=== PATIENT | female | born 1995 | race Caucasian/White ===

== ENCOUNTER 2018-08-21 02:04 | Emergency (ER) | payer SELFPAY ==
[~2018-08-21] VITALS: Ht 162.6 cm; Wt 86.2 kg
[~2018-08-21 02:04] MED LIST: AGM875T PO; AMOX500C2 PO; CEPH-507 PO; CYCL10TA9 PO; HYDR-3454 PO; HYDR-4226 PO; METH4TAB PO; NAPR-915 PO; ONDA8TAB13 PO
[2018-08-21 02:19] VITALS: BP 111/83
--- OUTSIDE RECORDS SUMMARY | 2018-08-21 02:23 | XMS REPORT | Clinical Summary ---
Demographics Preferred Language Unknown Marital Status Unknown Tenriism Affiliation Unknown Race Unknown Ethnic Group Unknown Author Author [facility] Organization [facility] Address Unknown Phone Unavailable Care Team Providers Care Runner Worker Name Role Phone PCP Unavailable Source Comments Some departments are not documenting in the electronic medical record. If you d o not see the information that you expected, contact Release of Information in [facility] Information Management department at [phone] for further assistan ce in locating additional records.[facility] Allergies No Known Allergies Medications Not on file Active Problems Not on file Social History Date Tobacco Use Types Packs/Day Years Used Never Assessed Sex Assigned at Date Recorded Not on file Industry Job Start Date Occupation Not on file Not on file Not on file Travel End Travel History Travel Start No recent travel history available. Last Filed Vital Signs Reading Time Taken Comments Vital Sign 127/65 04/27/2015 9:11 PM [employer] Blood Pressure 97 04/27/2015 9:11 PM [employer] Pulse 36.8 C (98.2 F) 04/27/2015 9:11 PM [employer] Temperature - - Respiratory Rate 100% 04/27/2015 9:11 PM [employer] Oxygen Saturation - - Inhaled Oxygen Concentration 77.1 kg (170 lb) 04/27/2015 9:11 PM [employer] Weight 162.6 cm (5' 4") 04/27/2015 9:11 PM [employer] Height 29.18 04/27/2015 9:11 PM [employer] Body Mass Index Plan of Treatment Health Maintenance Due Date Last Done Comments PHYSICAL (COMPREHENSIVE) 2000 EXAM HIV SCREENING 2008 HPV VACCINES (1 - Female 2008 3-dose series) DTAP/TDAP VACCINES (1 - 11/26/2011 Tdap) CERVICAL CANCER SCREENING 2014 INFLUENZA VACCINE 11/27/2018 Results Not on filefrom Last 3 Months
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
--- OUTSIDE RECORDS SUMMARY | 2018-08-21 02:24 | XMS REPORT ---
Author Author NADIR BARBER Organization [employer] Address Unknown Phone Unavailable Care Team Providers Care Fire Tower Keeper Name Role Phone NADIR BARBER CP Unavailable Allergies, Adverse Reactions, Alerts Substance Reaction Event Type N.K.D.A. Info Not Available Non Drug Allergy Problems Problem Type Condition Code Onset Dates Condition Status Problem Acute bronchitis 466.0 Active Assessment Dental examination Z01.20 Active Problem Acute sinusitis, unspecified 461.9 Active [...] End Date Status Dosage Penicillin G Potassium [facility] [id number] not defined Procedures Procedure Coding System Code Date INTRAORL-PERIAPICAL 1 FILM 18233 CPT-4 D0220 Nov 17, 2015 LTD ORAL EVALUATION - PROBLEM FOCUS CPT-4 D0140 Nov 17, 2015 Vital Signs Date/Time: Nov 17, 2015 Blood Pressure Diastolic 49 mmHg Blood Pressure Systolic 105 mmHg Height 65 in Results No Known Results Summary Purpose [employer] Submission
--- NOTE | 2018-08-21 02:26 | ED Upper Extremity ---
General Chief Complaint: Laceration Stated Complaint: RT HAND PINKY FINGER LAC Nursing Triage Note: Patient states she tripped and fell into a box of glass. Patient has a small laceration on her right pinky finger that is about a 0.5 inch long. No bleeding noted but she does state that it bled prior to arrival. Patient denies having any pain anywhere else as a result of her fall. Nursing Sepsis Screen: No Definite Risk History of Present Illness Date Seen by Provider: Aug 21, 2018 Time Seen by Provider: 02:22 Initial Comments Patient presents emergency department for evaluation of dorsal right pinky finger laceration at the middle phalanx sustained shortly prior to arrival after she tripped and fell into a box glass. Patient denies weakness numbness tingling or other injuries. She reports tetanus is up-to-date. Allergies and Home Medications Allergies Coded Allergies: No Known Drug Allergies (Unverified , 08/10/14) Home Medications Cephalexin 500 Mg Capsule, 500 MG PO Q8H Prescribed by: GOLDIE COLLINS on 04/02/15 1425 Ondansetron 8 Mg Tab.rapdis, 8 MG PO Q8H PRN for NAUSEA/VOMITING Prescribed by: GOLDIE COLLINS on 04/02/15 1425 Patient Home Medication List Home Medication List Reviewed: Yes Review of Systems Constitutional: no symptoms reported Skin: other (laceration) Past Wwuuvsu-Qnhows-Mupfkm Hx Patient Social History Alcohol Use: Denies Use Recreational Drug Use: No Smoking Status: Current Everyday Smoker Type Used: Cigarettes Recent Foreign Travel: No Contact w/Someone Who Travel: No Recent Infectious Disease Expo: No Physical Abuse: No Sexual Abuse: No Mistreated: No Fear: No Immunizations Up To Date Tetanus Booster (TDap): Less than 5yrs Seasonal Allergies Seasonal Allergies: No Past Medical History Surgeries: Yes Adenoidectomy, Gallbladder, Nose, Tonsillectomy, Tubal Ligation Respiratory: No Cardiac: No Neurological: No Reproductive Disorders: No 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 0oz. 86.503803ek; BMI Method:Stated General Appearance: WD/WN, no apparent distress Neurologic/Tendon: normal sensation, normal motor functions, normal tendon functions, responds to pain, no evidence tendon injury Neurologic/Psychiatric: no motor/sensory deficits, alert Skin: other (approximate 1 cm horizontal laceration over the right dorsal pinky finger. Wound examined bloodless field and there is no foreign body or tendon visualized and the wound is well approximated.) Procedures/Interventions Wound Location: Upper Extremities Other Wound Location R pinky finger Wound Length (cm): 1 Wound's Depth, Shape: superficial Wound Explored: no foreign body removed Irrigated w/ Saline (ccs): 1000 Betadine Prep?: Yes Wound Debrided: minimal Other Closure Supply: Wound Adhesive Layer Closure?: 1 Progress/Results/Core Measures Results/Orders Vital Signs/I&O 08/21/18 08/21/18 02:06 02:19 Temp 98.6 98.6 Pulse 86 86 Resp 18 18 B/P (MAP) 111/83 (92) 111/83 (92) Pulse Ox 96 96 O2 Delivery Room Air Room Air Blood Pressure Mean: 92 Progress Progress Note : Progress Note Wound was well approximated so it was closed with Dermabond and then placed in a splint she was told to leave in a splint for 5 days. Patient told to return with any signs of infections or other concerns. Patient aware and agreeable with plan and verbalized understanding of the above instructions. Departure Impression Primary Impression: Finger laceration Qualified Codes: S61.216A - Laceration without foreign body of right little finger without damage to nail, initial encounter Disposition: 01 HOME, SELF-CARE Condition: Stable Departure-Patient Inst. Patient Instructions: Laceration Repair With Glue (DC) Work/School Note: Work Release Form Date Seen in the Emergency Department: Aug 21, 2018 Other Restrictions Listed Below: No use of right hand for 5 days JAIRO HOFFMAN DO Aug 21, 2018 02:26
== END 2018-08-21 02:19 | disposition home or self-care (01) ==
LOC: EDUNIT# 02:04 → ER FS 02:06
DX: S61.216A Laceration without foreign body of right little finger without damage to nail, initial encounter (principal); F17.210 Nicotine dependence, cigarettes, uncomplicated; Z90.89 Acquired absence of other organs; Z98.51 Tubal ligation status; W01.119A Fall on same level from slipping, tripping and stumbling with subsequent striking against unspecified sharp object, initial encounter
CPT/HCPCS: 99282

== ENCOUNTER 2020-01-14 18:39 | Emergency (ER) | payer OTHER ==
[~2020-01-14] VITALS: Ht 162 cm; Wt 86.0 kg
[2020-01-14 19:07] VITALS: BP 95/82
[2020-01-14 19:16] LABS: BILIRUBIN,URINE NEGATIVE (NEGATIVE); CLARITY,URINE CLEAR; COLOR,URINE YELLOW; GLUCOSE, URINE (UA) NEGATIVE (NEGATIVE); KETONES,URINE NEGATIVE (NEGATIVE); LEUKOCYTE ESTERASE ,URINE 2+ (NEGATIVE); NITRITE,URINE POSITIVE (NEGATIVE); PROTEIN,URINE 2+ (NEGATIVE)
[2020-01-14 19:34] LABS: WBC,URINE 25-50 /HPF
[2020-01-14 19:35] LABS: BACTERIA,URINE TRACE /HPF
--- NOTE | 2020-01-14 19:37 | ED GU-Female ---
General Chief Complaint: - Urinary Stated Complaint: LOW BACK PAIN;LEFT AND RIGHT SIDE PAIN Nursing Triage Note: PT ARRIVES TO ER WITH C/O R AND L BACK PAIN WITHOUT BURNING WHILE URINATING Nursing Sepsis Screen: No Definite Risk Source: patient Exam Limitations: no limitations History of Present Illness Date Seen by Provider: Jan 14, 2020 Time Seen by Provider: 19:15 Initial Comments To ER with bilateral low flank pain. No fevers or chills. She had some bladder discomfort earlier in the week. No nausea no vomiting no fever no chills. Timing/Duration: constant Severity/Quality: moderate Location: unknown Radiation: none Activities at Onset: none Prior Genitourinary Problems: none Allergies and Home Medications Allergies Coded Allergies: No Known Drug Allergies (Unverified , 08/10/14) Home Medications Cephalexin 500 Mg Capsule, 500 MG PO Q8H Prescribed by: GODLIE COLLINS on 04/02/15 1425 Ondansetron 8 Mg Tab.rapdis, 8 MG PO Q8H PRN for NAUSEA/VOMITING Prescribed by: GOLDIE COLLINS on 04/02/15 1425 Sulfamethoxazole/Trimethoprim 1 Each Tablet, 1 EACH PO BID Prescribed by: RADHA RITTER on 01/14/20 194 Patient Home Medication List Home Medication List Reviewed: Yes Review of Systems Review of Systems Constitutional: see HPI; No chills, No fever EENTM: see HPI Respiratory: no symptoms reported Cardiovascular: no symptoms reported Gastrointestinal: No abdominal pain Genitourinary: see HPI, dysuria Musculoskeletal: no symptoms reported Skin: no symptoms reported Psychiatric/Neurological: No Symptoms Reported Endocrine: No Symptoms Reported Past Hsnlywl-Dzpijg-Rlusxb Hx Patient Social History Alcohol Use: Denies Use Recreational Drug Use: No Type Used: Cigarettes 2nd Hand Smoke Exposure: Yes Recent Foreign Travel: No Contact w/Someone Who Travel: No Recent Infectious Disease Expo: No Immunizations Up To Date Tetanus Booster (TDap): Less than 5yrs PED Vaccines UTD: Yes Seasonal Allergies Seasonal Allergies: No Past Medical History Surgeries: Yes Adenoidectomy, Section, Gallbladder, Nose, Tonsillectomy, Tubal Ligation Respiratory: No Cardiac: No Neurological: No : No Last Menstrual Period: Jan 14, 2020 Reproductive Disorders: No SENIOR FUND ACCOUNTANT History: Tubal Ligation Gastrointestinal: No Musculoskeletal: No Endocrine: No Cancer: No Psychosocial: No Integumentary: No Family Medical History No Pertinent Family Hx Physical Exam Vital Signs Vital Signs - First Documented 01/14/20 19:07 Temp 36.6 Pulse 96 Resp 18 B/P (MAP) 95/82 (86) Pulse Ox 100 O2 Delivery Room Air Capillary Refill : Less Than 3 Seconds Height, Weight, BMI Height: 5'4.00" Weight: 190lbs. 0oz. 86.583117jg; 32.00 BMI Method:Stated General Appearance: WD/WN, no apparent distress Neck: non-tender, full range of motion Respiratory: normal breath sounds, no respiratory distress, no accessory muscle use Gastrointestinal: normal bowel sounds, non tender, soft Neurologic/Psychiatric: alert, normal mood/affect, oriented x 3 Skin: normal color, warm/dry Progress/Results/Core Measures Suspected Sepsis Recent Fever Within 48 Hours: No Infection Criteria Present: Suspected New Infection New/Unexplained Altered Menta: No Sepsis Screen: No Definite Risk SIRS Temperature: Pulse: 96 Respiratory Rate: 18 Blood Pressure 95 /82 Mean: 86 Results/Orders Lab Results Laboratory Tests Test 01/14/20 19:10 Range/Units Urine Color YELLOW Urine Clarity CLEAR Urine pH 6.0 5-9 Urine Specific [place] 1.020 1.016-1.022 Urine Protein 2+ H NEGATIVE Urine Glucose (UA) NEGATIVE NEGATIVE Urine Ketones NEGATIVE NEGATIVE Urine Nitrite POSITIVE H NEGATIVE Urine Bilirubin NEGATIVE NEGATIVE Urine Urobilinogen 0.2 < = 1.0 MG/DL Urine Leukocyte Esterase 2+ H NEGATIVE Urine RBC (Auto) 3+ H NEGATIVE Urine RBC 2-5 H /HPF Urine WBC 25-50 H /HPF Urine Crystals NONE /LPF Urine Bacteria TRACE /HPF Urine Casts NONE /LPF Urine Mucus NEGATIVE /LPF Urine Culture Indicated YES My Orders Orders - RADHA RITTER APRN Levofloxacin Tablet (Levaquin Tablet) (01/14/20 19:45) Medications Given in ED Current Medications Medications Dose Ordered Sig/Darci Route Start Time Stop Time Status Last Admin Dose Admin Levofloxacin 500 mg ONCE ONCE PO 01/14/20 19:45 01/14/20 19:46 DC 01/14/20 19:45 500 MG Vital Signs/I&O 01/14/20 19:07 Temp 36.6 Pulse 96 Resp 18 B/P (MAP) 95/82 (86) Pulse Ox 100 O2 Delivery Room Air Capillary Refill : Less Than 3 Seconds Blood Pressure Mean: 86 Departure Impression Primary Impression: Urinary tract infection Qualified Codes: N30.01 - Acute cystitis with hematuria Disposition: HOME, SELF-CARE Condition: Stable Departure-Patient Inst. Decision time for Depature: 19:39 Referrals: NO,LOCAL PHYSICIAN (PCP/Family) Primary Care Physician Patient Instructions: Urinary Tract Infection, Adult (DC) Add. Discharge Instructions: 1. Medication as directed 2. Return to ER for any concerns 3. Follow up with your doctor later this week All discharge instructions reviewed with patient and/or family. Voiced understanding. Scripts Sulfamethoxazole/Trimethoprim (Bactrim Ds Tablet) 1 Each Tablet 1 EACH PO BID, #10 TAB Prov: RADHA RITTER APRN 01/14/20 RADHA RITTER APRN Jan 14, 2020 19:37
[2020-01-14] MEDS ORDERED: SULF1TAB35 PO (19:40)
[2020-01-14] MEDS ORDERED: LEVOFLOXACIN 500 MG TAB (LEVAQUIN) PO ONE (19:45)
== END 2020-01-14 19:47 | disposition home or self-care (01) ==
LOC: EDUNIT# 18:39 → ER 18:40
DX: N39.0 Urinary tract infection, site not specified (principal); Z77.22 Contact with and (suspected) exposure to environmental tobacco smoke (acute) (chronic)
CPT/HCPCS: 81000; 84703; 87077; 87088; 87186; 99283

== ENCOUNTER 2022-07-21 16:09 | Emergency (ER) | payer MEDICAID, OTHER ==
[~2022-07-21] VITALS: Ht 165 cm; Wt 90.7 kg
[~2022-07-21 16:09] MED LIST changes: +CYCL10TA25 PO; -CYCL10TA9 PO; +SULF1TAB38 PO
--- NOTE | 2022-07-21 16:42 | ED General ---
General Chief Complaint: Bite-Animal/Human/Insect Stated Complaint: DOG BITE | BILAT ARMS Nursing Triage Note: PT PRESENTS TO ED WITH C/O DOG BITE ON BILATERAL ARMS FROM LUCERO MENDOZA AROUND 1545 THIS AFTERNOON. DOG IS UTD ON VACCINES. SEVERAL BITE FRANKLIN NOTED ON BOTH ARMS, ONE GAPING HOLE TO UPPER RIGHT ARM. Source of Information: Patient Exam Limitations: Physical Impairments History of Present Illness Date Seen by Provider: July 21, 2022 Time Seen by Provider: 16:30 Initial Comments Patient is a 26-year-old female who presents to the emergency room with a chief complaint of dog bite to right upper arm and left lower forearm. Patient states she and her ex- were arguing in the driveway and her mother's bowl mastiff attacked her. Timing/Duration: 1/2 Hour Severity: Moderate Associated Systoms: Other (anxious) Allergies and Home Medications Allergies Coded Allergies: No Known Drug Allergies (Unverified , 08/10/14) Patient Home Medication List Home Medication List Reviewed: Yes Amoxicillin/Potassium Clav (Amox Tr-K Clv 875-125 mg Tab) 875 Mg-125 Mg Tablet, 1 EACH PO BID Prescribed by: MANUEL GAMING on 07/21/22 184 Cephalexin (Keflex) 500 Mg Capsule, 500 MG PO Q8H Prescribed by: GOLDIE COLLINS on 04/02/15 1425 Hydrocodone/Acetaminophen (Hydrocodone-Acetamin 5-325 mg) 5 Mg-325 Mg Tablet, 1 TAB PO Q6H PRN for PAIN-MODERATE (5-7) Prescribed by: MANUEL GAMING on 07/21/22 184 Ondansetron (Ondansetron Odt) 8 Mg Tab.rapdis, 8 MG PO Q8H PRN for NAUSEA/VOMITING Prescribed by: GOLDIE COLLINS on 04/02/15 1425 Sulfamethoxazole/Trimethoprim (Bactrim Ds Tablet) 1 Each Tablet, 1 EACH PO BID Prescribed by: RADHA RITTER on 01/14/201939 Review of Systems Review of Systems Constitutional: see HPI Respiratory: no symptoms reported Cardiovascular: no symptoms reported Gastrointestinal: no symptoms reported Genitourinary: no symptoms reported Musculoskeletal: muscle pain Skin: other (laceration) Psychiatric/Neurological: Anxiety Past Cxojfxp-Kiputd-Znpjdm Hx Patient Social History Tobacco Use?: Yes Use of E-Cig and/or Vaping dev: Yes E-Cig or Vaping type used: Marijuana Substance use?: Yes Substance type: Marijuana Alcohol Use?: No Pt feels they are or have been: No Immunizations Up To Date Tetanus Booster (TDap): Less than 5yrs PED Vaccines UTD: Yes Influenza Vaccine Up-to-Date: No; Not Current Seasonal Allergies Seasonal Allergies: No Past Medical History Surgeries: Yes Adenoidectomy, Section, Gallbladder, Nose, Tonsillectomy, Tubal Ligation Respiratory: No Cardiac: No Neurological: No Last Menstrual Period: June 30, 2022 Reproductive Disorders: 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 0oz. [id number]; 33.00 BMI Method:Stated General Appearance: No Apparent Distress, WD/WN Eyes: Bilateral Eye Normal Inspection, Bilateral Eye PERRL, Bilateral Eye EOMI HEENT: PERRL/EOMI Neck: Normal Inspection Respiratory: Lungs Clear, Normal Breath Sounds, No Accessory Muscle Use, No Respiratory Distress Cardiovascular: Regular Rate, Rhythm, Normal Peripheral Pulses Gastrointestinal: Non Tender, Soft Extremity: Normal Capillary Refill, Swelling (right upper arm and left forearm); No Other (left hand intrinsics weak (all) on the left - normal flex and extension in all fingers. sensation intact throughout the hand. She does have distal triceps deformity and 4/5 extension in right arm. ) Neurologic/Psychiatric: Alert, Oriented x3, No Motor/Sensory Deficits, Normal Mood/Affect Skin: Warm/Dry, Other (multipke open wounds to the upper right bicep area and lower forearm consistent with dog bite. largest volar forearm approximately 3cm; large gaping wound lateral right bicep 2 x 2 cm. all wounds oozing a little blood - no pulsatile blood loss. (see laceration repair procedure notes) Total of approximatedly 15 lacerations/punctures combined to both the right upper extremity and left lower forearm) Procedures/Interventions Wound Location: Upper Extremities Other Wound Location distal left forearm Wound Length (cm): 1 Wound's Depth, Shape: linear, contused tissue, sub Q Wound Explored: clean Irrigated w/ Saline (ccs): 200 Anesthesia: Lidocaine w/ Epi Volume Anesthetic (ccs): 1 Suture: Ethlion Suture Size: 4-0 Number of Sutures: 1 Layer Closure?: 1 Number Deep Layer Sutures: 0 Sterile Dressing Applied?: Yes Wound Location: Upper Extremities Other Wound Location mid dorsal forearm Wound Length (cm): 1.5 Wound's Depth, Shape: superficial, irregular, contused tissue, sub Q Irrigated w/ Saline (ccs): 200 Anesthesia: Lidocaine w/ Epi Volume Anesthetic (ccs): 2 Suture: Ethlion Suture Size: 4-0 Number of Sutures: 2 Layer Closure?: 1 Number Deep Layer Sutures: 0 Sterile Dressing Applied?: Yes Wound Location: Upper Extremities Other Wound Location proximal dorsal forearm Wound Length (cm): 1 Wound's Depth, Shape: superficial, irregular, sub Q Irrigated w/ Saline (ccs): 200 Anesthesia: Lidocaine w/ Epi Volume Anesthetic (ccs): 2 Suture: Ethlion Suture Size: 4-0 Number of Sutures: 1 Layer Closure?: 1 Number Deep Layer Sutures: 0 Sterile Dressing Applied?: Yes Wound Location: Upper Extremities Other Wound Location right distal dorsal upper arm Wound Length (cm): 1 Wound's Depth, Shape: superficial, irregular, sub Q Irrigated w/ Saline (ccs): 200 Anesthesia: Lidocaine w/ Epi Volume Anesthetic (ccs): 1 Suture: Ethlion Suture Size: 4-0 Number of Sutures: 1 Layer Closure?: 1 Number Deep Layer Sutures: 0 Sterile Dressing Applied?: Yes Wound Location: Upper Extremities Other Wound Location right dorsal distal upper arm Wound Length (cm): 1 Wound's Depth, Shape: superficial, irregular, sub Q Irrigated w/ Saline (ccs): 100 Anesthesia: Lidocaine w/ Epi Volume Anesthetic (ccs): 2 Suture: Ethlion Suture Size: 4-0 Number of Sutures: 1 Layer Closure?: 1 Number Deep Layer Sutures: 0 Sterile Dressing Applied?: Yes Wound Location: Upper Extremities Other Wound Location left volar mid forearm Wound Length (cm): 3.5 Wound's Depth, Shape: superficial, linear, contused tissue Wound Explored: clean Irrigated w/ Saline (ccs): 300 Betadine Prep?: No Anesthesia: Lidocaine w/ Epi Suture: Ethlion Suture Size: 4-0 Number of Sutures: 4 Layer Closure?: 1 Number Deep Layer Sutures: 0 Sterile Dressing Applied?: Yes Wound Location: Upper Extremities Other Wound Location right lateral upper arm Wound Length (cm): 1.5 Wound's Depth, Shape: contused tissue, sub Q Irrigated w/ Saline (ccs): 200 Betadine Prep?: No Anesthesia: Lidocaine w/ Epi Volume Anesthetic (ccs): 2 Wound Debrided: minimal Suture: Ethlion Suture Size: 4-0 Number of Sutures: 1 Layer Closure?: 1 Number Deep Layer Sutures: 0 Sterile Dressing Applied?: Yes Wound Location: Upper Extremities Other Wound Location right proximal upper arm Wound Length (cm): 3 Wound's Depth, Shape: irregular, contused tissue, sub Q Wound Explored: clean Irrigated w/ Saline (ccs): 400 Betadine Prep?: No Anesthesia: Lidocaine w/ Epi Suture: Ethlion Suture Size: 4-0 Number of Sutures: 4 Layer Closure?: 1 Number Deep Layer Sutures: 0 Sterile Dressing Applied?: Yes Wound Location: Upper Extremities Other Wound Location right lateral upper arm Wound Length (cm): 1 Wound's Depth, Shape: contused tissue, sub Q Wound Explored: clean Irrigated w/ Saline (ccs): 100 Betadine Prep?: No Anesthesia: Lidocaine w/ Epi Volume Anesthetic (ccs): 1 Suture: Ethlion Suture Size: 4-0 Number of Sutures: 1 Layer Closure?: 1 Number Deep Layer Sutures: 0 Sterile Dressing Applied?: Yes Wound Location: Upper Extremities Other Wound Location right lateral (distal) upper arm Wound Length (cm): 1 Wound's Depth, Shape: irregular, contused tissue, sub Q Wound Explored: clean Irrigated w/ Saline (ccs): 100 Betadine Prep?: No Anesthesia: Lidocaine w/ Epi Volume Anesthetic (ccs): 1 Suture: Ethlion Suture Size: 4-0 Number of Sutures: 1 Layer Closure?: 1 Number Deep Layer Sutures: 0 Sterile Dressing Applied?: Yes Wound Location: Upper Extremities Other Wound Location right lateral (distal) upper arm Wound Length (cm): 1 Wound's Depth, Shape: irregular, contused tissue, sub Q Wound Explored: clean Irrigated w/ Saline (ccs): 200 Betadine Prep?: No Anesthesia: Lidocaine w/ Epi Volume Anesthetic (ccs): 2 Wound Debrided: minimal Suture: Ethlion Suture Size: 4-0 Number of Sutures: 1 Layer Closure?: 1 Number Deep Layer Sutures: 0 Sterile Dressing Applied?: Yes Multiple wounds loosely approximated with Ethilon 4-0. Total of 19 sutures placed. Copious irrigation of all wounds. Patient tolerated procedure well. Extensive education given on wound care and management at home. Progress/Results/Core Measures Suspected Sepsis SIRS Temperature: Pulse: 108 Respiratory Rate: 40 Blood Pressure 151 /120 Mean: 130 Results/Orders My Orders Orders - MANUEL GAMING MD Lorazepam Tablet (Ativan Tablet) (07/21/22 16:45) Fentanyl Inj (Sublimaze Injection) (07/21/22 16:45) Humerus, Right, 2 Views (07/21/22 16:36) Forearm, Left, 2 Views (07/21/22 16:36) Lidocaine/Epi 2% 1:100,000 (Xylocaine/Ep (07/21/22 17:00) Lidocaine/Epi Mpf 2% 1:200,000 (Xylocain (07/21/22 17:11) Fentanyl Inj (Sublimaze Injection) (07/21/22 18:00) Amoxicillin/Clavulanate Tablet (Augmenti (07/21/22 18:39) Hydrocodone/Apap 5/325 Tablet (Lortab 5 (07/21/22 18:45) Dipht,Pertuss(Acell),Tet Adult (Boostrix (07/21/22 19:00) Medications Given in ED Vital Signs/I&O 07/21/22 07/21/22 16:15 19:25 Pulse 108 97 Resp 40 20 B/P (MAP) 151/120 (130) 160/91 Pulse Ox 100 100 O2 Delivery Room Air Room Air Capillary Refill : Less Than 3 Seconds Blood Pressure Mean: 130 Departure Impression Primary Impression: Dog bite of right upper extremity Qualified Codes: S41.151A - Open bite of right upper arm, initial encounter; W54.0XXA - Bitten by dog, initial encounter Additional Impression: Dog bite of left forearm Qualified Codes: S51.852A - Open bite of left forearm, initial encounter; W54.0XXA - Bitten by dog, initial encounter Disposition: 01 HOME, SELF-CARE Condition: Stable Departure-Patient Inst. Decision time for Depature: 18:42 Referrals: [facility] [place],LOCAL PHYSICIAN (PCP) Primary Care Physician Patient Instructions: Wound Care, Animal and human bites Add. Discharge Instructions: Keep all the wounds clean, dry and covered for the first 2- 3 days. Was with a mild soap and water. Apply triple antibiotics ointment twice a day for 3 days. Then you can stop using this. Come back on Monday the so I can do a wound evaluation/ re-check. You will need to take Augmentin 875mg twice a day for 5 days. Finish the entire course of antibiotics. Hydrocodone 5mg tablets every 6 hours with 1 other extra strength tylenol for pain. You can alternate with Ibuprofen. Always take ibuprofen with food. If you are taking hydrocodone routinely, take a stool softener daily. If any of the wounds become more red, swollen, painful or drain pus, please return to the Emergency Department for re-evaluation sooner. The stitches will need to come out in 10-12 days. Scripts Hydrocodone/Acetaminophen (Hydrocodone-Acetamin 5-325 mg) 5 Mg-325 Mg Tablet 1 TAB PO Q6H PRN for PAIN-MODERATE (5-7), #20 TAB Prov: MANUEL GAMING MD 07/21/22 Amoxicillin/Potassium Clav (Amox Tr-K Clv 875-125 mg Tab) 875 Mg-125 Mg Tablet 1 EACH PO BID for 5 Days, #10 TAB Prov: MANUEL GAMING MD 07/21/22 Images Extremities-Upper 1 - Other-See Progress Note 2 - Puncture Wound 3 - Puncture Wound 4 - Puncture Wound 1 - Laceration 2 - Puncture Wound 3 - Puncture Wound 4 - Puncture Wound 1 - bite 2 - bite 3 - bite MANUEL GAMING MD July 21, 2022 16:42
[2022-07-21] MEDS ORDERED: LORazepam 0.5 MG (ATIVAN) TABLET PO ONE (16:45)
[2022-07-21] MEDS ORDERED: HYDROcodone/APAP 5 MG/325 MG (LORTAB) TAB PO ONE ×2 (16:45→18:45)
[2022-07-21] MEDS ORDERED: fentaNYL INJ 100 MCG/2 ML AMP IVP ONE ×2 (16:45→18:00)
[2022-07-21] MEDS ORDERED: LIDOCAINE/EPI 2% 1:100,00 (XYLOCAINE) 20 ML VIAL INJ ONE (17:00)
--- NOTE | 2022-07-21 17:02 | Diagnostic Imaging Report ---
INDICATION: Dog bite, right humeral pain. AP and lateral views of the right humerus are obtained. FINDINGS: No fracture or acute bony abnormality is seen. There is no radiopaque foreign body. Soft tissue gas is seen compatible with penetrating injury. IMPRESSION: Soft tissue gas over the distal soft tissues compatible with penetrating injury. No acute fracture or radiopaque foreign body. Dictated by: Dictated on workstation # [id number]
--- NOTE | 2022-07-21 17:02 | Diagnostic Imaging Report ---
INDICATION: Left forearm pain. TECHNIQUE: AP and lateral views of the left forearm are obtained. FINDINGS: No fracture or acute bony abnormality is seen. There is soft tissue gas, compatible with penetrating injury. There is no radiopaque foreign body. IMPRESSION: No evidence of fracture or radiopaque foreign body. Soft tissue gas is present, compatible with penetrating injury. Dictated by: Dictated on workstation # [id number]
[2022-07-21] MEDS ORDERED: LIDOCAINE/EPI 2% 1:200,00 (XYLOCAINE) 20 ML VIAL ONE (17:11)
[2022-07-21] MEDS ORDERED: AUGMENTIN 875 MG TAB (AMOXICILLIN/CLAVULANATE) PO STA (18:39)
[2022-07-21] MEDS ORDERED: ACHD5005 PO (18:43)
[2022-07-21] MEDS ORDERED: AMOX1TAB12 PO (18:43)
[2022-07-21] MEDS ORDERED: TETANUS,DIPTH,PERTUSS P/F (BOOSTRIX) 0.5 ML VIAL IM ONE (19:00)
[2022-07-21 19:25] VITALS: BP 160/91
== END 2022-07-21 19:27 | disposition home or self-care (01) ==
LOC: EDUNIT# 16:09 → ER 16:10
DX: S41.151A Open bite of right upper arm, initial encounter (principal); S51.852A Open bite of left forearm, initial encounter; F17.290 Nicotine dependence, other tobacco product, uncomplicated; Z28.310 Unvaccinated for COVID-19; Z23 Encounter for immunization; W54.0XXA Bitten by dog, initial encounter
CPT/HCPCS: 12002; 73060; 73090; 90715

== ENCOUNTER 2022-07-24 13:18 | Emergency (ER) | payer MEDICAID ==
[~2022-07-24] VITALS: Ht 165 cm; Wt 90.7 kg
[~2022-07-24 13:18] MED LIST changes: +ACHD5005 PO; +AMOX1TAB12 PO
--- NOTE | 2022-07-24 13:33 | ED Integumentary General ---
General Chief Complaint: Skin/Wound Problems Stated Complaint: WOUND CHECK Source: patient Exam Limitations: no limitations History of Present Illness Date Seen by Provider: July 24, 2022 Time Seen by Provider: 13:33 Allergies and Home Medications Allergies Coded Allergies: No Known Drug Allergies (Unverified , 08/10/14) Patient Home Medication List Amoxicillin/Potassium Clav (Amox Tr-K Clv 875-125 mg Tab) 875 Mg-125 Mg Tablet, 1 EACH PO BID Prescribed by: MANUEL GAMING on 07/21/22 184 Cephalexin (Keflex) 500 Mg Capsule, 500 MG PO Q8H Prescribed by: GOLDIE COLLINS on 04/02/15 1425 Hydrocodone/Acetaminophen (Hydrocodone-Acetamin 5-325 mg) 5 Mg-325 Mg Tablet, 1 TAB PO Q6H PRN for PAIN-MODERATE (5-7) Prescribed by: MANUEL GAMING on 07/21/22 184 Ondansetron (Ondansetron Odt) 8 Mg Tab.rapdis, 8 MG PO Q8H PRN for NAUSEA/VOMITING Prescribed by: GOLDIE COLLINS on 04/02/15 1425 Sulfamethoxazole/Trimethoprim (Bactrim Ds Tablet) 1 Each Tablet, 1 EACH PO BID Prescribed by: RADHA RITTER on 01/14/201939 Past Fdehram-Jedlev-Myegpk Hx Immunizations Up To Date Tetanus Booster (TDap): Less than 5yrs PED Vaccines UTD: Yes Seasonal Allergies Seasonal Allergies: No Past Medical History Surgeries: Yes Adenoidectomy, Section, Gallbladder, Nose, Tonsillectomy, Tubal Ligation Respiratory: No Cardiac: No Neurological: No 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 Referrals: NO,LOCAL PHYSICIAN (PCP/Family) Primary Care Physician MANUEL GAMING MD July 24, 2022 13:33
--- NOTE | 2022-07-24 13:46 | ED Suture Removal/Wound Check ---
Suture/Wound Re-check Suture Removal/Wound Recheck : Progress S/p dog bite to bilateral arms 07/21/22. Here for wound re-evaluation. Patient looks well. C/o some pain. some noted honey-crusted to drainage to right upper arm wounds. Slight erythema. tender to palpation General Appearance: WD/WN, no apparent distress Neuro/Tendon: motor deficit (weak triceps extension right UE), sensory deficit (over elbow and dorsal right humerus) Skin Exam: warm/dry Physical Exam Vital Signs Vital Signs - First Documented 07/24/22 13:33 Temp 35.3 Pulse 83 Resp 18 B/P (MAP) 147/100 (116) Pulse Ox 99 Capillary Refill : Less Than 3 Seconds General Appearance: WD/WN, no apparent distress Cardiovascular: regular rate, rhythm Respiratory: no respiratory distress, no accessory muscle use Extremities: other (decreased ROM to RUE due to pain/swelling; Right Upper arm more edematous than left forearm) Neurologic/Psychiatric: alert, normal mood/affect, oriented x 3 Skin: warm/dry, other (see initial "re-check" note) Departure Impression Primary Impression: Encounter for evaluation of wound Disposition: HOME, SELF-CARE Condition: Stable Departure-Patient Inst. Decision time for Depature: 13:44 Referrals: NO,LOCAL PHYSICIAN (PCP) Primary Care Physician DENISE GANDARA MD Patient Instructions: Wound Care (DC) Add. Discharge Instructions: Continue to wash the sutured areas with a mild soap and water twice daily. Place the Bacitracin ointment over the area of wound on the right upper arm that has the yellowish discoloration. Extend your Augmentin to a total of 7 day. (I have sent 4 more pills to the pharmacy). Please call and follow up with Dr Gandara next week to evaluate right upper arm muscles (Triceps injury) due to the dog bite. Return to the ER for re-evaluation if you have any new, concerning or emergent complaints. All discharge instructions reviewed with patient and/or family. Voiced under standing. Scripts Bacitracin (Bacitracin) 500 Unit/Gram Oint...g. 28.4 GM TP BID for 5 Days, #1 EA Apply to affected area twice a day for 5 days (right upper arm) Prov: MANUEL GAMING MD 5/28/23 Amoxicillin/Potassium Clav (Amox Tr-K Clv 875-125 mg Tab) 875 Mg-125 Mg Tablet 1 EACH PO BID, #4 TAB Will end up taking a total of 7 days Prov: MANUEL GAMING MD 07/24/22 Copy Copies To 1: DENISE GANDARA MD, KATHRYN M MD July 24, 2022 13:46
[2022-07-24] MEDS ORDERED: AMOX1TAB12 PO (13:48)
[2022-07-24] MEDS ORDERED: BACI28.4 TP (13:48)
[2022-07-24 14:03] VITALS: BP 147/100
== END 2022-07-24 14:01 | disposition home or self-care (01) ==
LOC: EDUNIT# 13:18 → ER 13:21
DX: S41.151D Open bite of right upper arm, subsequent encounter (principal); S41.152D Open bite of left upper arm, subsequent encounter; Z28.310 Unvaccinated for COVID-19; W54.0XXD Bitten by dog, subsequent encounter